=== PATIENT | female | born 1965 | race African-American/Black ===

== ENCOUNTER → 2018-08-21 | Outpatient (CLI) | payer OTHER ==
[~2018-08-21] MED LIST: ALEVE220 MG PO; ANALPRAM-HC 2.530 GM RE; CALCIUM OYSTER500 MG PO; CITRATE OF MAG296 ML PO; COLACE100 MG PO; FISH OIL 1,0001 EAC5 PO; FLAGYL500 MG PO; LAXATIVE8.6 MG PO; METAMUCIL PAC1 UDPK1 PO; MOM PO; NORCO 5-325 TA1 EACH PO; PROAIR HFA8.5 GM IH; PROCTOCREAM-HC30 G1 RC; SIMVASTATIN20 MG PO; SINGULAIR PO; SYMBICORT160 MCG/4. IH; VITAMINC500 PO
== END ==
LOC: CAT 08:17
DX: Z13.6 Encounter for screening for cardiovascular disorders (principal); E78.00 Pure hypercholesterolemia, unspecified

== ENCOUNTER 2019-08-03 17:17 | Inpatient (IN) | payer OTHER ==
[~2019-08-03] VITALS: Ht 165.1 cm; Wt 73.9 kg
[~2019-08-03 17:17] MED LIST changes: +SINGULAIR 10 MG10 M1 PO; -SINGULAIR PO
[2019-08-03 17:22] VITALS: BP 146/77
[2019-08-03] MEDS ORDERED: HYDROCHLOROTH12.5 M1 PO (17:27)
[2019-08-03] MEDS ORDERED: PROZAC20 MG PO (17:27)
[2019-08-03] MEDS ORDERED: BISOPROLOL FUMAR5 MG PO (17:27)
[2019-08-03] MEDS ORDERED: BUPROPION XL150 MG PO (17:28)
[2019-08-03] MEDS ORDERED: ZANAFLEX4 MG PO (17:28)
[2019-08-03] MEDS ORDERED: FISH OIL 1,001000 M2 PO (17:28)
[2019-08-03] MEDS ORDERED: SIMVASTATIN40 MG PO (17:28)
[2019-08-03] MEDS ORDERED: ASPIR 8181 MG PO (17:28)
[2019-08-03] MEDS ORDERED: NAPROSYN500 MG PO (17:29)
[2019-08-03] MEDS ORDERED: SINGULAIR 10 MG10 M1 PO (17:29)
[2019-08-03] MEDS ORDERED: PROAIR RESPICL90 MCG (17:30)
[2019-08-03 17:39] LABS: URINE BILIRUBIN NEGATIVE (Negative); URINE BLOOD NEGATIVE (Negative); URINE CLARITY CLEAR; URINE COLOR YELLOW; URINE GLUCOSE-RANDOM* NEGATIVE (Negative); URINE KETONES NEGATIVE (Negative); URINE LEUKOCYTES-REFLEX NEGATIVE (Negative); URINE NITRITE-REFLEX NEGATIVE (Negative); URINE PROTEIN (DIPSTICK) NEGATIVE (Negative); URINE UROBILINOGEN 0.2 E.U./dl (0.2-1.0)
[2019-08-03 17:44] LABS: ABSOLUTE NEUTROPHILS 3.3 thou/uL (1.4-8.2); BASOPHILS 0.7 % (0.0-2.0); EOSINOPHILS 1.9 % (0.0-3.0); HEMATOCRIT 37.4 % (37.0-47.0); HEMOGLOBIN 12.3 gm/dL (12.0-15.0); LYMPHOCYTES 35.4 % (24.0-44.0); MCH 27.6 pg (26.0-34.0); MCHC 32.9 g/dL (28.0-37.0); MONOCYTES 10.1 % (1.0-8.0); PLATELET COUNT 254 thou/uL (150-400); POLYS 51.9 % (36.0-66.0); RBC 4.46 mil/uL (4.20-5.00); RDW 13.2 % (10.5-14.5); WBC 6.4 thou/uL (4.0-11.0)
[2019-08-03 17:59] LABS: POTASSIUM 3.5 mmol/L (3.5-5.1)
[2019-08-03 18:05] LABS: ALBUMIN 3.7 g/dL (3.4-5.0); DIRECT BILIRUBIN < 0.1 mg/dL (<0.1-0.3); SGOT 20 U/L (15-37); SGPT 23 U/L (30-65); TOTAL BILIRUBIN 0.2 mg/dL (<0.1-1.0); TOTAL PROTEIN 7.5 g/dL (6.4-8.2)
--- NOTE | 2019-08-03 19:35 | NUR ---
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 PT INFORMED
[2019-08-03 20:56] VITALS: BP 145/85
[2019-08-03 21:31] VITALS: BP 145/85
[2019-08-03 21:41] VITALS: BP 147/85
[2019-08-03 21:42] VITALS: BP 137/93; BP 146/94
[2019-08-04 01:40] VITALS: BP 102/63
[2019-08-04 05:07] VITALS: BP 121/81
[2019-08-04 05:36] LABS: HEMATOCRIT 34.4 % (37.0-47.0); HEMOGLOBIN 11.4 gm/dL (12.0-15.0); MCHC 33.2 g/dL (28.0-37.0); MCV 84.2 fL (80.0-100.0); RBC 4.08 mil/uL (4.20-5.00); RDW 13.1 % (10.5-14.5); WBC 5.3 thou/uL (4.0-11.0)
--- NOTE | 2019-08-04 05:56 | NUR ---
PT ARRIVED TO UNIT APPROX 2130, ADMISSION AND ASSESSMENT COMPLETED, CONSENTS SIGNED. PT A&Ox4, DENIES PAIN/NAUSEA/SOB. C/O DIZZINESS WITH WALKING, STATES SHE NEEDS TO HOLD ONTO THE RIVAS/FURNITURE TO KEEP FROM STUMBLING, DENIES DIZZINESS WHILE LYING IN BED. DENIES VISION CHANGES, NEURO ASSESSMENT IS NORMAL. FALL PRECAUTIONS IN PLACE, EDUCATED TO CALL FOR ASSISTANCE. NO OTHER CONCERNS, WILL CONTINUE TO MONITOR.
[2019-08-04 05:58] LABS: CALCIUM 9.1 mg/dL (8.5-10.1); CHOLESTEROL 148 mg/dL (<200); CREATININE 0.9 mg/dL (0.6-1.0); HDL CHOLESTEROL 58 mg/dL (>40); LDL CHOLESTEROL 78 mg/dL (<100); POTASSIUM 4.1 mmol/L (3.5-5.1); TC:HDL 2.6 Ratio (Not establshd); TRIGLYCERIDE 63 mg/dL (<150); VLDL 13 mg/dL (<40)
[2019-08-04 05:59] LABS: SERUM ASSESSMENT Clear
[2019-08-04 08:01] VITALS: BP 120/84
[2019-08-04 11:32] VITALS: BP 124/80
--- NOTE | 2019-08-04 11:53 | EKG ---
[place] [address] [facility] [place] [address] ELECTROCARDIOGRAM REPORT Name: LEILA BRADSHAW Room #: 349-I ADM IN M.R.#: [id number] ������������������ Admission: 08/03/19 ������������������ Attend Phys: Miguel Valdez MD Discharge: ������������������ Date of : 65 Report #: [id number] ����������������������������������������������������������������� [id number] THIS REPORT FOR: //name// [facility] ED Test Date: 2019-08-03 Test Time: 17:25:14 Pat Name: LEILA BRADSHAW Department: Room: 349 Gender: F Bail Attacher: YAQUELIN : 1965 Requested By: Bruno Gutierrez Order Number: [id number] MD: Jamari Cameron Measurements Intervals [place] Rate: 74 P: 45 OK: 186 QRS: -26 QRSD: 84 T: 11 QT: 373 QTc: 414 Interpretive Statements Sinus rhythm Borderline left axis deviation Low voltage, precordial leads Borderline T abnormalities, anterior leads No previous ECG available for comparison Electronically Signed On 08-04-2019 11:53:37 CDT by Jamari Cameron [email or web address] ��������������������������������������������� <ELECTRONICALLY SIGNED> ���������������������������������������� By: Jamari Cameron MD, [facility] ��������������������������������������������� 08/04/19 1153 1725 172 Jamari Cameron MD, [facility] /EPI
[2019-08-04] MEDS ORDERED: ANTIVERT25 MG PO (13:01)
[2019-08-04 15:36] VITALS: BP 124/80
[2019-08-04 15:57] VITALS: BP 124/80
--- NOTE | 2019-08-04 16:27 | NUR ---
PT DISCHARGED TO HOME WITH PRN MECLIZINE FOR DIZZINESS...WILL FOLLOW UP WITH PCP IN 1 WEEK AND NEURO IN 1 MONTH ..
== END 2019-08-04 16:30 | disposition home or self-care (01) | DRG 149 ==
LOC: ER 17:17 → EROBS 20:09 → 3W 21:30
PROVIDERS: Nurse Practitioner; Nurse Practitioner Acute Care; ADMIT Internal Medicine
DX: R42 Dizziness and giddiness (principal); J45.909 Unspecified asthma, uncomplicated; E78.00 Pure hypercholesterolemia, unspecified; I10 Essential (primary) hypertension; Z83.3 Family history of diabetes mellitus; Z88.6 Allergy status to analgesic agent; Z88.0 Allergy status to penicillin; Z82.49 Family history of ischemic heart disease and other diseases of the circulatory system; Z79.899 Other long term (current) drug therapy
CPT/HCPCS: 10879